=== PATIENT | female | born 1950 | race Caucasian/White ===

== ENCOUNTER → 2017-12-16 | Outpatient (CLI) | payer MEDICARE ==
[~2017-12-16] MED LIST: ATOR20 PO; Desyrel50 MG; VENL150ER PO
== END | disposition home or self-care (01) ==
LOC: PLD 07:44 → LAB SHORT 07:44
DX: D18.09 Hemangioma of other sites (principal)
CPT/HCPCS: 88305

== ENCOUNTER 2018-08-25 06:00 | Day surgery (SDC) | payer MEDICARE ==
[~2018-08-25] VITALS: Ht 165.1 cm; Wt 91.8 kg
[~2018-08-25 06:00] MED LIST changes: +COQ1050 MG PO; -Desyrel50 MG; +TRAZ100 PO
--- NOTE | 2018-08-25 06:53 | NUR ---
History, Chart, Medications and Allergies reviewed before start of procedure. Patient confirms NPO status and agrees with scheduled surgery. Lungs clear T/O to Auscultation. Patient reports completing Chlorhexadine shower X2 prior to admission to hospital. Pre-Op teaching done. Pt verbalizes understanding. PATIENT HAS DENTURES AND GLASSES AT ADMIT.
--- NOTE | 2018-08-25 07:09 | NUR ---
NOZIN SWABS COMPLETED.
--- NOTE | 2018-08-25 07:09 | NUR ---
[employer] REPORT COMPLETED AT BEDSIDE WITH ALISTAIR CAZARES RN.
--- NOTE | 2018-08-25 07:19 | NUR ---
DR SALAS AT BEDSIDE TO YANNA L KNEE.
--- NOTE | 2018-08-25 07:25 | NUR ---
SISTER TAKING HER GLASSES. PATIENT UP TO BR FOR UNMEASURED VOID.
--- NOTE | 2018-08-25 11:29 | NUR ---
PT ARRIVED TO THE ROOM AT APPROXIMATELY 1105. PT ALERT AND ORIENTED. FAMILY/FRIENDS AT THE BEDSIDE. PT DENIES PAIN. PT REPORTS NUMBNESS FROM HER KNEES DOWN. SHE IS ABLE TO WIGGLE HER TOES BUT SENSATION REMAINS DECREASED. VSS. WILL CONTINUE TO MONITOR.
--- NOTE | 2018-08-25 19:15 | NUR ---
SHIFT SUMMARY PAIN HAS BEEN MANAGED WITH PO PAIN MEDICATION. PT IS ALERT AND ORIENTED. 1 ASSIST WHEN OOB. SHE WORKED WITH THERAPY TODAY. PT TOLERATING PO AND VOIDING WELL. VSS. REPORT GIVEN TO TOLU CARROLL.
--- NOTE | 2018-08-25 23:16 | NUR ---
REPORT RECIEVED FROM GLEN JAUREGUI
[2018-08-26 04:18] LABS: BASOPHILS ABSOLUTE AUTO 0.01 K/mm3 (0.00-0.23); BASOPHILS PERCENT AUTO 0 % (0-2); EOSINOPHILS PERCENT AUTO 0 % (0-6); Hematocrit 34.3 % (33.0-51.0); Hemoglobin 11.2 g/dL (11.5-16.0); IMMATURE GRAN ABSOLUTE AUTO 0.07 K/mm3 (0.00-0.10); IMMATURE GRAN PERCENT AUTO 1 % (0-1); LYMPHOCYTES ABSOLUTE AUTO 1.02 K/mm3 (0.84-5.20); LYMPHOCYTES PERCENT AUTO 9 % (21-46); MONOCYTES PERCENT AUTO 6 % (4-13); Mean Corpuscular HGB 30.5 pg (26.0-34.0); Mean Corpuscular HGB Conc 32.7 g/dL (31.5-36.5); Mean Corpuscular Volume 94 fL (80-100); Mean Platelet Volume 9.1 fL (9.1-12.4); NEUTROPHILS ABSOLUTE AUTO 9.24 K/mm3 (1.96-9.15); NEUTROPHILS PERCENT AUTO 85 % (41-73); Platelet Count 257 K/mm3 (150-400); RDW Coefficient Variation 12.6 % (11.7-14.2); RDW Standard Deviation 43.5 fL (35.1-46.3); Red Blood Cell Count 3.67 M/mm3 (3.80-5.20); White Blood Cell Count 10.94 K/mm3 (4.00-11.30)
[2018-08-26 04:35] LABS: Anion Gap 6 mmol/L (6-16); Blood Urea Nitrogen 14 mg/dL (8-24); Bun/Creatinine Ratio 16.8 (12.0-20.0); CO2, Blood 25 mmol/L (21-32); Calcium, Blood 8.4 mg/dL (8.5-10.1); Chloride, Blood 106 mmol/L (98-108); Creatinine, Blood 0.84 mg/dL (0.40-1.00); Glomerular Filtration Rate >60 (60-); Glucose, Blood 145 mg/dL (70-99); Magnesium, Blood 2.4 mg/dL (1.6-2.4); Potassium, Blood 4.6 mmol/L (3.5-5.5); Sodium, Blood 137 mmol/L (136-145)
--- NOTE | 2018-08-26 06:38 | NUR ---
SUMMARY: PT IS POD1 L TKA. NO CHANGE SINCE REPORT RECIEVED. VSS, A/O MEDICATED PER EMAR FOR PAIN. MOVING WELL, DENIES N/V. SURGICAL SITE WNL. WILL REPORT TO DAY RN
[2018-08-26] MEDS ORDERED: ASPI325EC PO (10:12)
[2018-08-26] MEDS ORDERED: ACET500 PO (10:12)
[2018-08-26] MEDS ORDERED: OXYC5 PO (10:14)
--- NOTE | 2018-08-26 13:22 | NUR ---
DISCHARGE PT PROVIDED WITH WRITTEN AND VERBAL DISCHARGE INSTRUCTIONS. PT AND HER SISTER REPORTED UNDERSTANDING INSTRUCTIONS. CLEAN DRESSINGS PROVIDED FOR HOME USE. PAIN MANAGED AT TIME OF DISCHARGE. PT ASSISTED OUT IN W/C BY JYOTI NAVA.
== END 2018-08-26 13:12 | disposition home or self-care (01) ==
LOC: ORSCMMR 06:00 → ORD 07:30 → SURS 11:05 → ORD 14:45 → SURS 08-26 13:12 → ORSCMMR 08-26 13:12
PROVIDERS: Orthopaedic Surgery
PROC: 0SRD0J9 Replacement of Left Knee Joint with Synthetic Substitute, Cemented, Open Approach (ICD-10-PCS; principal; 2018-08-25 07:30)
DX: M17.12 Unilateral primary osteoarthritis, left knee (principal); E66.9 Obesity, unspecified; Z68.33 Body mass index [BMI] 33.0-33.9, adult; Z79.899 Other long term (current) drug therapy
CPT/HCPCS: 36415; 73560-LT; 80048; 83735; 85025; 88300; 97110; 97116; 97162; 97530; C1713; C1776; J0171; J0690; J0735; J1100; J1885; J2250; J2370; J2405; J2704; J2795; J3010; J7120

== ENCOUNTER 2019-05-12 07:22 | Day surgery (SDC) | payer MEDICARE ==
[~2019-05-12] VITALS: Ht 165.1 cm; Wt 80.1 kg
[~2019-05-12 07:22] MED LIST changes: +ACET500 PO; +ASPI325EC PO; +CO Q10100 MG; +HYDR1TAB94; +OXYC5 PO; +Vitamin D2000 UNIT; +Voltaren100 GM
== END 2019-05-12 09:45 | disposition home or self-care (01) ==
LOC: ORSCSDS 07:22
PROVIDERS: Surgery
PROC: 0DBH8ZX Excision of Cecum, Via Natural or Artificial Opening Endoscopic, Diagnostic (ICD-10-PCS; principal; 2019-05-12 08:30)
DX: Z12.11 Encounter for screening for malignant neoplasm of colon (principal); Z83.71 Family history of colonic polyps; D12.0 Benign neoplasm of cecum; E66.9 Obesity, unspecified; Z68.30 Body mass index [BMI] 30.0-30.9, adult; Z79.899 Other long term (current) drug therapy
CPT/HCPCS: 88305; J2704; J7120